=== PATIENT | female | born 1950 | race Caucasian/White ===

== ENCOUNTER 2019-03-02 06:35 | Emergency (ER) | payer MEDICARE, BC ==
--- NOTE | 2019-03-02 07:04 | EDM.PDOC ---
ED HPI GENERAL MEDICAL PROBLEM - General Chief Complaint: Abdominal Pain Stated Complaint: pain in left side Time Seen by Provider: 03/02/19 07:00 Source of Information: Reports: Patient, Old Records, Provider (Nikki HAIR ), RN, RN Notes Reviewed History Limitations: Reports: No Limitations - History of Present Illness INITIAL COMMENTS - FREE TEXT/NARRATIVE: Pt presents to ER from home by POV with c/o LLQ abdominal pain yesterday. The pain was mild initially, but after a few hours she ate and felt ill afterwards. Pt admits to very slight nausea. She denies fever, chills, vomiting, diarrhea, constipation, bloody or black stools, or mucus in the stool. Pt states that she has a history of diverticulitis, and this feels exactly the same. Pt is clear that she does not want and IV or a CT scan. She states that she hopes to be treated conservatively, and she will f/u in clinic. Onset: Gradual Onset Date: 03/01/19 Duration: Constant, Getting Worse Location: Reports: Abdomen Quality: Reports: Ache, Dull Severity: Mild Improves with: Reports: Immobilization, Rest Worsens with: Reports: Eating, Movement Associated Symptoms: Reports: No Other Symptoms Left Lower Abdomen Pain Score (Numeric/FACES): 4 - Related Data Allergies Allergy/AdvReac Type Severity Reaction Status Date / Time No Known Allergies Allergy Verified 03/02/19 06:41 Home Meds: Home Meds Losartan [Cozaar] 50 mg PO BID 03/02/19 [History] Past Medical History - Past Health History Medical/Surgical History: Denies Medical/Surgical History Cardiovascular History: Reports: Hypertension Respiratory History: Reports: None Gastrointestinal History: Reports: Diverticulosis HEAD BONE GRINDER History: Reports: None Musculoskeletal History: Reports: None Neurological History: Reports: None Psychiatric History: Reports: None Endocrine/Metabolic History: Reports: Obesity/BMI 30+ Hematologic History: Reports: None Immunologic History: Reports: None Oncologic (Cancer) History: Reports: None Dermatologic History: Reports: None - Infectious Disease History Infectious Disease History: Reports: None - Past Surgical History Head Surgeries/Procedures: Reports: None HEENT Surgical History: Reports: Naso-Sinus Surgery Female Surgical History: Reports: Breast Reduction Social & Family History - Family History Family Medical History: Noncontributory - Tobacco Use Smoking Status *Q: Never Smoker Second Hand Smoke Exposure: No - Caffeine Use Caffeine Use: Reports: Coffee - Recreational Drug Use Recreational Drug Use: No - Living Situation & Occupation Living situation: Reports: with Family Occupation: Retired ED ROS GENERAL - Review of Systems Review Of Systems: ROS reveals no pertinent complaints other than HPI. ED EXAM, GI/ABD - Physical Exam Exam: See Below Exam Limited By: No Limitations General Appearance: Alert, WD/WN, No Apparent Distress Throat/Mouth: Normal Inspection, Normal Voice, No Airway Compromise Head: Atraumatic, Normocephalic Neck: Normal Inspection Respiratory/Chest: No Respiratory Distress, Lungs Clear, Normal Breath Sounds, No Accessory Muscle Use, Chest Non-Tender Cardiovascular: Regular Rate, Rhythm GI/Abdominal Exam: Normal Bowel Sounds, Soft, No Distention, No Abnormal Bruit, Tender (LLQ). No: Guarding, Rigid, Rebound (Female) Exam: Deferred Rectal (Female) Exam: Deferred Back Exam: Normal Inspection Extremities: Normal Inspection Neurological: Alert, Oriented, No Motor/Sensory Deficits Psychiatric: Normal Affect, Normal Mood Skin Exam: Warm, Dry, Intact, Normal Color, No Rash Course - Vital Signs Last Recorded V/S: Last Vital Signs Temp 36.4 C 03/02/19 06:42 Pulse 94 03/02/19 06:42 Resp 18 03/02/19 06:42 BP 155/75 H 03/02/19 06:42 Pulse Ox 94 L 03/02/19 06:42 - Orders/Labs/Meds Orders: Active Orders 24 hr Category Date Time Status CULTURE URINE [RM] Urgent Lab 03/02/19 08:03 Received Labs: Laboratory Tests 03/02/19 03/02/19 03/02/19 Range/Units 07:03 07:03 07:03 WBC 14.1 H (5.0-10.0) 10^3/uL RBC 4.44 (4.2-5.4) 10^6/uL Hgb 13.4 (12.0-16.0) g/dL Hct 41.0 (37.0-47.0) % MCV 92.3 (80-100) fL MCH 30.2 (27.0-34.0) pg MCHC 32.7 L (33.0-35.0) g/dL Plt Count 261 (150-450) 10^3/uL Neut % (Auto) 75.0 (42.2-75.2) % Lymph % (Auto) 11.9 L (20.5-50.1) % [place] % (Auto) 11.1 H (2-8) % Eos % (Auto) 1.8 (1.0-3.0) % Baso % (Auto) 0.2 (0.0-1.0) % Sodium 137 (135-145) mmol/L Potassium 4.0 (3.6-5.0) mmol/L Chloride 104 (101-111) mmol/L Carbon Dioxide 22.0 (21.0-31.0) mmol/L Anion Gap 15.0 BUN 25 H (7-18) mg/dL Creatinine 0.7 (0.6-1.3) mg/dL Est Cr Clr Drug Dosing 65.50 mL/min Estimated GFR (MDRD) > 60 BUN/Creatinine Ratio 35.71 Glucose 133 H (74-105) mg/dL Lactic Acid 0.8 (0.5-2.2) mmol/L Calcium 8.6 (8.4-10.2) mg/dl Total Bilirubin 0.8 (0.2-1.0) mg/dL AST 14 (10-42) IU/L ALT 15 (10-60) IU/L Alkaline Phosphatase 61 (42-121) IU/L Total Protein 7.1 (6.7-8.2) g/dl Albumin 3.8 (3.2-5.5) g/dl Globulin 3.3 Albumin/Globulin Ratio 1.15 Urine Color (YELLOW) Urine Appearance (CLEAR) Urine pH (5.0-9.0) Ur Specific [place] (1.005-1.030) Urine Protein (NEGATIVE) Urine Glucose (UA) (NEGATIVE) Urine Ketones (NEGATIVE) Urine Occult Blood (NEGATIVE) Urine Nitrite (NEGATIVE) Urine Bilirubin (NEGATIVE) Urine Urobilinogen (0.2-1.0) mg/dL Ur Leukocyte Esterase (NEGATIVE) Urine RBC /HPF Urine WBC (0-5/HPF) /HPF Ur Epithelial Cells /HPF Urine Bacteria (0-FEW/HPF) /HPF Urine Mucus /LPF Urinalysis Comment 03/02/19 Range/Units 08:03 WBC (5.0-10.0) 10^3/uL RBC (4.2-5.4) 10^6/uL Hgb (12.0-16.0) g/dL Hct (37.0-47.0) % MCV (80-100) fL MCH (27.0-34.0) pg MCHC (33.0-35.0) g/dL Plt Count (150-450) 10^3/uL Neut % (Auto) (42.2-75.2) % Lymph % (Auto) (20.5-50.1) % [place] % (Auto) (2-8) % Eos % (Auto) (1.0-3.0) % Baso % (Auto) (0.0-1.0) % Sodium (135-145) mmol/L Potassium (3.6-5.0) mmol/L Chloride (101-111) mmol/L Carbon Dioxide (21.0-31.0) mmol/L Anion Gap BUN (7-18) mg/dL Creatinine (0.6-1.3) mg/dL Est Cr Clr Drug Dosing mL/min Estimated GFR (MDRD) BUN/Creatinine Ratio Glucose (74-105) mg/dL Lactic Acid (0.5-2.2) mmol/L Calcium (8.4-10.2) mg/dl Total Bilirubin (0.2-1.0) mg/dL AST (10-42) IU/L ALT (10-60) IU/L Alkaline Phosphatase (42-121) IU/L Total Protein (6.7-8.2) g/dl Albumin (3.2-5.5) g/dl Globulin Albumin/Globulin Ratio Urine Color Yellow (YELLOW) Urine Appearance Slightly cloudy (CLEAR) Urine pH 6.0 (5.0-9.0) Ur Specific [place] 1.010 (1.005-1.030) Urine Protein Trace H (NEGATIVE) Urine Glucose (UA) Negative (NEGATIVE) Urine Ketones Negative (NEGATIVE) Urine Occult Blood Negative (NEGATIVE) Urine Nitrite Negative (NEGATIVE) Urine Bilirubin Negative (NEGATIVE) Urine Urobilinogen 0.2 (0.2-1.0) mg/dL Ur Leukocyte Esterase Moderate H (NEGATIVE) Urine RBC 0-5 /HPF Urine WBC 10-20 H (0-5/HPF) /HPF Ur Epithelial Cells Few /HPF Urine Bacteria Few (0-FEW/HPF) /HPF Urine Mucus Moderate H /LPF Urinalysis Comment See note - Re-Assessments/Exams Free Text/Narrative Re-Assessment/Exam: 03/02/19 08:33 Pt with LLQ pain, no peritoneal signs, and the pain is mild to moderate. She has had no fevers or chills and no urinary symptoms. Plan to tx her empirically for suspected diverticulitis with Cipro and Flagyl, and have her f/u in clinic this week for recheck. She has been instructed to return to the ER if worse at any time. Departure - Departure Time of Disposition: 08:35 Disposition: Home, Self-Care 01 Condition: Good Clinical Impression: Diverticulitis large intestine w/o perforation or abscess w/o bleeding - Discharge Information *PRESCRIPTION DRUG MONITORING PROGRAM REVIEWED*: No *COPY OF PRESCRIPTION DRUG MONITORING REPORT IN PATIENT GARTH: No Instructions: Diverticulitis Forms: ED Department Discharge Additional Instructions: Rx: Cipro 500mg Rx: Flagyl 500mg *Do not drink alcohol while taking this medication. Follow up in clinic this week for recheck. Return to ER if worse at any time.
[2019-03-02 07:34] LABS: CHLORIDE,CL 104 mmol/L (101-111); SODIUM,NA 137 mmol/L (135-145)
== END 2019-03-02 08:38 | disposition home or self-care (01) ==
LOC: DL.ED 06:35
DX: K57.32 Diverticulitis of large intestine without perforation or abscess without bleeding (principal); I10 Essential (primary) hypertension; Z79.899 Other long term (current) drug therapy
CPT/HCPCS: 36415; 80053; 81001; 83605; 85025; 87086; 99284

== ENCOUNTER 2019-08-06 10:24 | Day surgery (SDC) | payer MEDICARE, BC ==
--- NOTE | 2019-08-04 12:18 | HP ---
PREOPERATIVE HISTORY AND PHYSICAL She will be having surgery at noon on 08/06/2019. She will be coming to the hospital at 10:30 a.m. that day and surgery is at noon on 08/06/2019. HISTORY: This patient is a very pleasant 69-year-old, 3, para 3, referred to me by Germaine Weiner. She was seen by me on 06/27/2019 with a history of postmenopausal bleeding. She described it as a blood tinged and watery unusual vaginal discharge for her that lasted about 5 to 6 days. She denies any pelvic pain. She denies any vaginal pain. She has had 3 prior vaginal deliveries and there was no history of infertility or problems conceiving. Menarche was at age 13. She apparently had a history of some dysfunctional uterine bleeding back in 2010. She does have a past history of small uterine fibroids. We did proceed with endometrial biopsy at that office visit, and the pathology report did come back as scant stripped areas of endometrium that appeared to be benign and with no neoplasia and no hyperplasia. This was, however, a small sampling of the endometrium. Because of the scant amount of tissue obtained and because she does have an abnormal ultrasound with 10 mm endometrial stripe measurements in a postmenopausal female, we have decided to proceed with D and C to get further abundant sampling of tissue to rule out neoplasia and rule out hyperplasia. I did give the patient the option of further observation for approximately 8 weeks, and the patient and I have decided to choose the choice of D and C for further clarification of the diagnosis sooner than later. Also, her small anterior wall uterine fibroid does show up on the ultrasound and the uterus was slightly enlarged measuring 11.1 x 6.4 x 4.8 cm on ultrasound. Regarding the GI tract, she denies any increase in abdominal girth and denies any nausea, vomiting, dyspepsia, hematochezia, or melena. As it pertains to her respiratory system, she denies any exertional dyspnea or denies any dyspnea at rest. She denies chronic cough. Cardiovascular system; she denies any chest pain with rest or chest pain with exertion. PAST MEDICAL HISTORY: She does have a history of hypertension which is under good control. She also has a history of hyperlipidemia, but has not tolerated statins and is not on any statins. MEDICATIONS: At present, losartan 50 mg daily, vitamin D, probiotics, and Benadryl 25 mg p.r.n. PAST SURGICAL HISTORY: Prior surgery consists of T and A, breast reductions, sinus surgery, nasal surgery, and bilateral tubal ligation. ALLERGIES: None known, although codeine sometimes causes nausea. SOCIAL HISTORY: She is a nonsmoker and uses alcohol only socially and lightly. 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 FAMILY HISTORY: One aunt and 1 cousin had breast cancer, but no other first or second-degree relatives have had any uterine, ovarian, vulvar, vaginal or endometrial cancer that she is aware of. The patient herself does get yearly mammograms. PHYSICAL EXAMINATION: Vital Signs: Blood pressure 112/70, pulse 74, respirations 12, temperature 98.7, weight 204 pounds. HEENT: The sclerae are nonicteric. There are no distended neck veins. Dentition is in good repair. Lungs: Clear to A. Heart: Regular rhythm without murmur. Integument: She does have scattered seborrheic keratosis on her back. Abdomen: Soft, slightly corpulent and nontender and no palpable masses. There is negative CVA tenderness. Pelvic: Recent pelvic examination in the office revealed the labia to be somewhat redundant. The vaginal canal previously had a slight amount of pinkish or watery, slightly ailyn-tinged fluid. Her cervix was negative for lesions. Bimanual exam revealed the uterus to be in the mid position and slightly to moderately large, perhaps 9-week size. No discrete fibroids were palpated. There were no adnexal masses or tenderness. Extremities: No ankle or pedal edema. IMPRESSION: History of postmenopausal bleeding with abnormally thickened endometrial stripe. Because of her small sampling from the office endometrial biopsy, we still need to rule out a more serious underlying process such as early endometrial neoplasia and rule out endometrial hyperplasia. I did give her the option earlier of conservative observation for approximately 8 weeks and also gave her the option of D and C. The patient and I have agreed that D and C should be done to avoid missing significant pathology. We did thoroughly discuss with her in our informed consent session, the goals and reasons for doing the D and C as well as the slight possibility of complications and adverse outcomes. The patient does wish to proceed with D and C, and she has consented for that procedure. We will obtain CBC and basic metabolic panel, and I will thoroughly discuss her with Anesthesia as well. MOD /[id number]
[2019-08-06] MEDS ORDERED: fentaNYL 100 MCG/2 ML SDV IV ONE (10:25)
[2019-08-06] MEDS ORDERED: Propofol 200 MG/20 ML SDV IV ONE (10:25)
[2019-08-06] MEDS ORDERED: Glycopyrrolate 0.2 MG/ML 2 ML SDV IV ONE (10:25)
[2019-08-06] MEDS ORDERED: Ondansetron 4 MG/2 ML SDV IV ONE (10:25)
[2019-08-06] MEDS ORDERED: Midazolam 1 MG/ML 2 ML SDV IV ONE (10:25)
[2019-08-06] MEDS ORDERED: Dexamethasone 4 MG/ML SDV IV ONE (10:25)
[2019-08-06] MEDS ORDERED: Lactated Ringers 1,000 ML IV SCH (11:45)
[2019-08-06] MEDS ORDERED: Scopolamine 1.5 MG Transdermal Patch TOP ONE (12:00)
[2019-08-06] MEDS ORDERED: Scopolamine 1.5 MG Transdermal Patch ONE (12:01)
--- NOTE | 2019-08-06 13:37 | OR ---
DATE: 08/06/2019 PREOPERATIVE DIAGNOSIS: Postmenopausal bleeding with abnormal endometrial thickness on pelvic ultrasound. The patient also had very scant amount of possibly benign tissue at office endometrial biopsy. Rule out endometrial neoplasia, rule out endometrial hyperplasia. POSTOPERATIVE DIAGNOSIS: Postmenopausal bleeding with abnormal endometrial thickness on pelvic ultrasound. The patient also had very scant amount of possibly benign tissue at office endometrial biopsy. Rule out endometrial neoplasia, rule out endometrial hyperplasia. Pathology report pending. OPERATION PERFORMED: Dilation and curettage. ANESTHESIA: General. COMPLICATIONS: None. ESTIMATED BLOOD LOSS: 5 mL. DESCRIPTION OF PROCEDURE: After the induction of general anesthesia and with the patient routinely prepped and draped in the usual fashion, a bimanual exam was again performed. The uterus was felt to be approximately 9-week size and in the mid to anterior position. No discrete fibroids were palpated. The ovarian and tubal areas or adnexal areas were negative for masses or enlargement. Now, the vaginal canal as previously mentioned had already been prepped, but we did add extra Betadine on to the cervix which was somewhat high in the vaginal vault. Single-tooth tenaculum was now attached to the anterior lip of the cervix and the uterus was very carefully sounded to approximately 8.5 to 9 cm. Now, the cervical canal was very carefully and gently progressively dilated with the Yates dilators. The cervix was negative for lesions. No endocervical lesions were identified either. Now, the curette was introduced and a slight to moderate amount of tissue was obtained on the curettage. We were very careful to systematically and carefully curette all aspects of the endometrial cavity. All of the tissue was submitted to the pathologist. Estimated blood loss was approximately 5 mL. The needle, sponge, and instrument count was reported as correct. As mentioned above, all of the instruments were removed. The patient tolerated the procedure well and went to the recovery room in good condition. We have already given her postoperative instructions, and she and I will keep in close contact in the postoperative period, and we will also be discussing the pathology report with her when that is back. She will call us at once with any questions or problems whatsoever postoperatively. MUSCOGEEL /[id number]
== END 2019-08-06 14:32 | disposition home or self-care (01) ==
LOC: DL.SDS 10:24
PROVIDERS: ATTEND Obstetrics & Gynecology
DX: N84.0 Polyp of corpus uteri (principal); I10 Essential (primary) hypertension; E78.5 Hyperlipidemia, unspecified; Z98.51 Tubal ligation status; Z79.899 Other long term (current) drug therapy
CPT/HCPCS: 00940; 36415; 85014; 85018; 88305; 93005; A9270-GY; J1100; J2250; J2405; J2704; J3010; J3490; J7120

== ENCOUNTER 2023-12-25 05:43 | Emergency (ER) | payer MEDICARE, BC ==
[2023-12-25] MEDS: Sodium Chloride 0.9% 10 ML Syringe FLUSH PRN (06:18)
[2023-12-25 06:19] LABS: APPEARANCE,URINE CLEAR (CLEAR); BILIRUBIN,URINE NEGATIVE (NEGATIVE); COLOR,URINE YELLOW (YELLOW); GLUCOSE,URINE NEGATIVE (NEGATIVE); KETONES,URINE NEGATIVE (NEGATIVE); LEUKOCYTE ESTERASE,URINE NEGATIVE (NEGATIVE); NITRITE,URINE NEGATIVE (NEGATIVE); OCCULT BLOOD,URINE LARGE (NEGATIVE); PROTEIN,URINE NEGATIVE (NEGATIVE); UROBILINOGEN,URINE 0.2 mg/dL (0.2-1.0)
[2023-12-25 06:29] LABS: EPITHELIAL CELLS,URINE FEW /HPF (NOT SEEN); MUCUS,URINE FEW /LPF (NOT SEEN)
[2023-12-25 06:30] LABS: BASOPHILS PERCENT AUTO 0.3 % (0.0-1.0); EOSINOPHILS PERCENT AUTO 1.6 % (1.0-3.0); HEMATOCRIT 40.9 % (37.0-47.0); HEMOGLOBIN 13.2 g/dL (12.0-16.0); LYMPHOCYTES PERCENT AUTO 12.1 % (20.5-50.1); MEAN CORPUSCULAR HGB CONC 32.3 g/dL (33.0-35.0); MONOCYTES PERCENT AUTO 6.6 % (2-8); NEUTROPHILS PERCENT AUTO 79.4 % (42.2-75.2); PLATELET COUNT,PLT 325 10^3/uL (150-450); WHITE BLOOD CELL COUNT,WBC 14.5 10^3/uL (5.0-10.0)
[2023-12-25 06:30] LABS: CALCIUM OXALATE CRYSTALS,URINE FEW /HPF (NOT SEEN); RBC,URINE SEMI-PACKED /HPF (0-5)
[2023-12-25 06:31] LABS: BACTERIA,URINE FEW /HPF (0-FEW/HPF); WBC,URINE 0-5 /HPF (0-5/HPF)
[2023-12-25 06:44] LABS: A/G RATIO 1.1; ALBUMIN 3.9 g/dL (3.4-5.0); ANION GAP 16.4 mEq/L (7-13); BILIRUBIN TOTAL 0.4 mg/dL (0.2-1.0); CALCIUM 9.2 mg/dL (8.5-10.1); CREATININE 1.24 mg/dL (0.55-1.02); EST CRCL DRUG DOSING (CG) 35.09 mL/min; POTASSIUM,K 4.4 mmol/L (3.5-5.1); PROTEIN TOTAL,TP 7.4 g/dL (6.4-8.2)
[2023-12-25] MEDS: Iopamidol 612 MG/ML 100 ML Bottle IVPUSH ONE (07:19)
[2023-12-25] MEDS ORDERED: oxyCODONE 5 MG/5 ML Cup PO ONE (07:48)
[2023-12-25] MEDS ORDERED: oxyCODONE 5 MG Tab PO ONE (07:54)
== END 2023-12-25 08:30 | disposition home or self-care (01) ==
LOC: DL.ED 05:43
DX: N13.2 Hydronephrosis with renal and ureteral calculous obstruction (principal); I10 Essential (primary) hypertension; E78.00 Pure hypercholesterolemia, unspecified; Z79.899 Other long term (current) drug therapy; Z88.8 Allergy status to other drugs, medicaments and biological substances
CPT/HCPCS: 36415; 74177; 80053; 81001; 85025; 99284; Q9967; J3490